=== PATIENT | female | born 1965 | race African-American/Black ===

== ENCOUNTER 2019-10-05 08:51 | Outpatient (CLI) | payer MEDICARE, MEDICAID ==
--- NOTE | 2019-10-06 14:52 | MMO ---
Bilateral MAMMO Bilat Screen [facility]. CLINICAL HISTORY: Patient is 53 years old and is seen for screening. The patient has the following family history of breast cancer: maternal grandmother, malignant (generic). The patient has no personal history of cancer. VIEWS: The views performed were: bilateral craniocaudal with tomosynthesis and bilateral mediolateral oblique with tomosynthesis. FILMS COMPARED: The present examination has been compared to prior imaging studies performed at [facility] on 01/17/2014 and 12/10/2016, and at [facility] on 05/12/2015. This study has been interpreted with the assistance of computer-aided detection. MAMMOGRAM FINDINGS: There are scattered fibroglandular densities. Benign calcifications are noted bilaterally. There are no suspicious masses, suspicious calcifications, or new areas of architectural distortion. IMPRESSION: THERE IS NO MAMMOGRAPHIC EVIDENCE OF MALIGNANCY. A ROUTINE FOLLOW-UP MAMMOGRAM IN 1 YEAR IS RECOMMENDED. THE RESULTS OF THIS EXAM WERE SENT TO THE PATIENT. ACR BI-RADS Category 2 - Benign finding MAMMOGRAPHY NOTE: 1. A negative mammogram report should not delay a biopsy if a dominant of clinically suspicious mass is present. 2. Approximately 10% to 15% of breast cancers are not detected by mammography. 3. Adenosis and dense breasts may obscure an underlying neoplasm. Reported by: TARA ROMO MD Electonically Signed: [id number]
== END 2019-10-05 08:52 | disposition home or self-care (01) ==
LOC: BICMAMMO 08:51
PROVIDERS: ATTEND Clinical Nurse Specialist Medical-Surgical
DX: Z12.31 Encounter for screening mammogram for malignant neoplasm of breast (principal); Z80.3 Family history of malignant neoplasm of breast
CPT/HCPCS: 77063; 77067

== ENCOUNTER 2021-07-27 07:53 | Outpatient (CLI) | payer MEDICARE, MEDICAID | END 2021-07-27 07:54 | disposition home or self-care (01) | LOC: BICMAMMO 07:53 | PROVIDERS: ATTEND Family Medicine | DX: Z12.31 Encounter for screening mammogram for malignant neoplasm of breast (principal); Z87.01 Personal history of pneumonia (recurrent); Z86.16 Personal history of COVID-19; R91.8 Other nonspecific abnormal finding of lung field; Z80.3 Family history of malignant neoplasm of breast | CPT/HCPCS: 71046; 77063; 77067 ==

== ENCOUNTER 2021-09-14 10:34 | Emergency (ER) | payer MEDICARE, MEDICAID ==
[2021-09-14 17:37] LABS: SARS-CoV-2 PCR by NAA Not Detected (NotDetected)
== END 2021-09-14 12:15 | disposition home or self-care (01) ==
LOC: ERS 10:34
DX: R05.1 Acute cough (principal); Z20.822 Contact with and (suspected) exposure to COVID-19; I10 Essential (primary) hypertension; J44.9 Chronic obstructive pulmonary disease, unspecified; F17.210 Nicotine dependence, cigarettes, uncomplicated; E11.9 Type 2 diabetes mellitus without complications; I25.10 Atherosclerotic heart disease of native coronary artery without angina pectoris; E78.5 Hyperlipidemia, unspecified; K21.9 Gastro-esophageal reflux disease without esophagitis
CPT/HCPCS: 71045; U0003; U0005

== ENCOUNTER 2022-03-26 08:23 | Outpatient (CLI) | payer MEDICARE, MEDICAID | END 2022-03-26 08:24 | disposition home or self-care (01) | LOC: BICRAD 08:23 | PROVIDERS: ATTEND Family Medicine | DX: M54.50 Low back pain, unspecified (principal); M47.816 Spondylosis without myelopathy or radiculopathy, lumbar region; M51.36 Other intervertebral disc degeneration, lumbar region | CPT/HCPCS: 72110 ==